=== PATIENT | male | born 1960 | race Caucasian/White ===

== ENCOUNTER 2016-08-15 06:42 | Day surgery (SDC) | payer BC ==
[~2016-08-15] VITALS: Ht 185.4 cm; Wt 107.4 kg
--- OUTSIDE RECORDS SUMMARY | 2016-08-15 06:45 | XMS REPORT | Continuity of Care Document ---
Author Author [facility] Organization [facility] Address Unknown Phone Unavailable Allergies Active Description Code Type Severity Reaction Onset Reported/Identified Relationship to Patient Clinical Status Yes No Known Allergies NKMA N/A N/A 01/10/2014 Medications Problems Procedures Results Encounters ACCT No. Visit Date/Time Discharge Status Pt. Type Provider Facility Loc./Unit Complaint [id number] 07/26/2014 07:04:00 2014 23:59:00 DIS Outpatient [facility] Sleep CP CPAP SUPPLIES [id number] 01/21/2014 15:33:00 2013 23:59:00 DIS Outpatient Lesley Weaver [facility] FC Ane ANESTHESIA [id number] 07/27/2014 09:59:00 Document Registration [id number] 07/26/2014 16:48:00 Document Registration [id number] 07/26/2014 15:46:00 Document Registration
--- OUTSIDE RECORDS SUMMARY | 2016-08-15 06:45 | XMS REPORT | Referral Summary ---
Author Organization Unknown Address Unknown Phone Unavailable Care Team Providers Care Youth Care Specialist Name Role Phone MiguelTroy Primary Care Physician [phone] Encounter [facility] [id number] Date(s): 07/26/14 - 07/26/14 [facility] [place] [address] [id number] Discharge Diagnosis: Hypersomnia with sleep apnea Discharge Diagnosis: SEN on CPAP Discharge Disposition: Home or Self Care Attending Physician: José Antonio Martel MD Admitting Physician: José Antonio Martel MD Vital Signs Most recent to 1 oldest [Reference Range]: Peripheral Pulse 83 bpm Rate [60-100 bpm] (07/26/14 4:01 PM) Blood Pressure 118/80 mmHg [90-140/60-90 mmHg] (07/26/14 4:01 PM) Most recent to 1 oldest [Reference Range]: SpO2 97 % (07/26/14 4:01 PM) Problem List Condition Effective Dates Status Health Status Informant Allergies(Confirmed) Resolved Kidney Resolved stones(Confirmed) Obesity(Confirmed) Active patient Allergies, Adverse Reactions, Alerts No Known Allergies Medications ibuprofen 0 Refill(s) Start Date: 01/10/14 Status: Ordered Results No data available for this section Immunizations No data available for this section Procedures Procedure Date Related Diagnosis Body Site Kidney stone Social History Social History Type Response Smoking Status Never smoker Assessment and Plan Extracted from: Title: Office Visit Note Author: José Antonio Martel Date: 07/26/14 Assessment/Plan 1.SEN on CPAP 2.Hypersomnia with sleep apnea - Increase CPAP to 12 cmH2O. - New mask and supplies. - Patient advised to avoid driving and other potentially harmful activities if feeling sleepy, drowsy or otherwise impaired. Countermeasures such as pulling over to nap and napping before driving discussed. - Follow up in 4-6 weeks to check progress. - Consider re-titration if problems persist.
--- OUTSIDE RECORDS SUMMARY | 2016-08-15 06:45 | XMS REPORT | Referral Summary ---
Author Organization Unknown Address Unknown Phone Unavailable Care Team Providers Care Cuff Maker Name Role Phone MiguelTroy Primary Care Physician [phone] Encounter VC Date(s): 07/27/14 - 07/27/14 [facility] [id number] [place], [place] [address] Discharge Disposition: Home or Self Care Attending Physician: Porter Chiu MD Admitting Physician: Porter Chiu MD Vital Signs No data available for this section Problem List Condition Effective Dates Status Health [...] smoker Assessment and Plan Extracted from: Title: CPAP SUPPLIES Author: Camilla Che MINERAL SURVEYING TECHNICIAN Date: 07/27/14 Patient received a Quattro:med ffm with headgear on 07/26/2014. Needing to work on fit this am. Addendum pt wanted to try large quttro for 30 day switch, will let us know which size is best. by Erica Curtis MINERAL SURVEYING TECHNICIAN on 27 July 2014 10:17 CDT
--- OUTSIDE RECORDS SUMMARY | 2016-08-15 06:45 | XMS REPORT | Referral Summary ---
Author Organization Unknown Address Unknown Phone Unavailable Care Team Providers Care Labor Conciliator Name Role Phone Troy Rivera Primary Care Physician [phone] Encounter [facility] [id number] Date(s): 07/26/14 - 07/26/14 [facility], [address] [employer] [place], [place] [address] Discharge Disposition: Home or Self Care Attending Physician: José Antonio Martel MD Vital Signs No data available for [...] Smoking Status Never smoker Assessment and Plan No data available for this section
[2016-08-15] MEDS ORDERED: LIDOCAINE 1% (10mg/ml) 2ml SDV INJ ONE (07:00)
[2016-08-15] MEDS ORDERED: LR 1,000 ML IV SCH (07:00)
[2016-08-15 07:06] VITALS: BP 134/82; PULSE 88; RESP 16; TEMP 98.6; O2SAT 96
[2016-08-15 07:07] VITALS: Ht 185.4 cm; Wt 107.4 kg
--- NOTE | 2016-08-15 07:33 | ANESPREOP ---
Anesthesia Record Date and Time DATE: 08/15/16 TIME: 704 Proposed Surgical Procedure COLONOSCOPY Allergies: Coded Allergies: NKDA (Verified Allergy, Unknown, 08/14/16) Ht/Wt/BMI Height: 6 ' 1.00 " Weight: 107.400 kg BMI: 31.2 kg/m2 Vital Signs Date Time Temp Pulse Resp B/P Pulse Ox O2 Delivery O2 Flow Rate FiO2 08/15/16 07:06 98.6 88 16 134/82 96 Room Air Medications Inpatient Medications Current Medications Medications (Trade) Dose Ordered Sig/Rohit Start Time Stop Time Status Last Admin Dose Admin Lactated Ringer's (Lactated Ringers) 1,000 ml @ 50 mls/hr Q20H 08/15/16 07:00 08/15/16 07:20 50 MLS/HR No Active Prescriptions or Reported Meds Currently on Beta Barron: No Medical/Surgical History Anesthesia PMH: Reports: Arthritis, Reflux (HEARTBURN OCCASIONALLY- well controlled), Denies: Anesthesia Reactions, Cancer, Clotting Problems, Glaucoma, Malignant Hyperthermia, Renal Disease Smoking Status: Never smoker Use Chewing Tobacco?: No Substance Use Type: does not use Past Surgical History Orthopedic Surgeries: Abdominal Surgeries: Genitourinary Surgeries: Yes - CYSTO/LITHO Cardiac Surgeries: Endocrine Surgeries: Reproductive Surgeries: Neurological Surgeries: Ear Surgeries: Nose Surgeries: Yes - SINUS POLYPS Throat Surgeries: Other Surgeries: Anesthesia Adverse Reactions: FOUND none Family Hx of Anesthesia Advers: none Hx of Motion Sickness: No Physical Exam Respiratory: Lungs clear Cardiovascular: FOUND Regular rate, rhythm Airway Assessment Mallampati Score: II TMD: 3 Fingerbreadths Neck Extension: Fair Overall Assessment: No Airway Concerns ASA: 2 Plan Anesthesia Plan: TIVA Discussion Discussed risks/options/alternatives of anesthesia and questions answered. Patient consents. Nursing pain assessment noted. Attestation Statement Prior to the delivery of any anesthetic medication, I examined the patient, developed the plan, obtained the patient's consent and discussed the risk and benefits of the procedure with the patient/guardian. TERESA WOOD CRNA August 15, 2016 07:33
[2016-08-15] MEDS ORDERED: PROPOFOL 500mg 50 ML IV ONE (08:14)
[2016-08-15 08:45] VITALS: BP 103/60; PULSE 69; RESP 14; TEMP 97.2; O2SAT 94
--- NOTE | 2016-08-15 08:50 | ANESPO ---
Post-Op Note Date 08/15/16 Time: 08:50 Status Pt Participated in Evaluation: Pt participated in person Vital Signs Date Time Temp Pulse Resp B/P Pulse Ox O2 Delivery O2 Flow Rate FiO2 08/15/16 07:06 98.6 88 16 134/82 96 Room Air Respiratory Function: Airway patent Cardiovascular Function: Regular pulse Mental Status: Alert/oriented Pain Level Intensity: 0 Hydration: Taking po fluids Complications during Recovery None apparent Follow-Up Instructions Instructions Per Surgeon TERESA WOOD CRNA August 15, 2016 08:50
[2016-08-15 09:00] VITALS: BP 127/80; PULSE 80; RESP 12; O2SAT 95
[2016-08-15 09:15] VITALS: BP 129/84; PULSE 76; RESP 20; O2SAT 95
--- NOTE | 2016-08-15 18:26 | OPNOTEF ---
DATE OF PROCEDURE: 08/15/2016 SURGEON: Michel Newell MD PREOPERATIVE DIAGNOSIS Colorectal cancer surveillance. POSTOPERATIVE DIAGNOSIS Colorectal cancer surveillance, normal colonoscopy. PROCEDURE: Colonoscopy. ANESTHESIA: TIVA. BRIEF HISTORY/INDICATIONS Grace is a 55-year-old patient who is new to my practice. He reported he had never had a colonoscopy. After discussion we decided to proceed. For completeness please refer to office notes. FINDINGS Upon colonoscopy, there was no evidence for angiodysplastic lesions, polyps, diverticula or cheryl malignancies. DESCRIPTION OF PROCEDURE After informed consent was obtained, the patient was brought to the endoscopy suite and placed on the table in left lateral decubitus position. The patient subsequently underwent total intravenous anesthesia by the nurse video systems engineer per my request. Next, a digital rectal examination was performed. Normal sphincter tone. No rectal masses were appreciated. An Olympus colonoscope was inserted in the anus and advanced with the lumen of the colon under direct visualization at all times until the cecum was ascertained. Triangulation of the tenia coli, ileocecal valve and appendiceal lumen were all visualized. The scope was then slowly withdrawn, again while maintaining visualization of the lumen at all times. As stated above, the entire colon was without evidence for angiodysplastic lesions, polyps, diverticula or cheryl malignancies. The scope continued to be withdrawn until it was brought forth back into the rectal vault. A J-maneuver was then performed. No worrisome perianal pathology was noted. The scope was allowed to straighten and was withdrawn through the anal verge. The patient tolerated the procedure without difficulty and was sent back to the preop area in stable condition. Secondary to the absence of findings upon this colonoscopy, the patient will not need to undergo a repeat colonoscopy until ten years from now unless new indications should arise. MTDHorace
== END 2016-08-15 09:26 | disposition home or self-care (01) ==
LOC: NSC 06:42
PROVIDERS: ATTEND Family Medicine
DX: Z12.11 Encounter for screening for malignant neoplasm of colon (principal); K21.9 Gastro-esophageal reflux disease without esophagitis; G47.30 Sleep apnea, unspecified; Z79.899 Other long term (current) drug therapy; Z99.81 Dependence on supplemental oxygen
CPT/HCPCS: 45378; J2704; J7120